=== PATIENT | female | born 1975 ===

== ENCOUNTER 2024-12-31 05:30 | Day surgery (SDC) | payer OTHER ==
[2024-12-28 13:48] VITALS: BP 137/84
[~2024-12-31] VITALS: Ht 162.6 cm; Wt 59.0 kg
[2024-12-31] MEDS ORDERED: METRONIDAZOLE/SODIUM CHLORIDE 500 MG/100 ML PIGGYBACK IV ONE (10:45)
[2024-12-31] MEDS ORDERED: CEFTRIAXONE SODIUM 2,000 MG VIAL IV ONE (10:45)
[2024-12-31] MEDS ORDERED: DIBUCAINE 30 GM TUBE RECTAL ONE (11:00)
[2024-12-31] MEDS ORDERED: HEMOSTATIC MATRIX 1 KIT KIT TOP ONE (11:00)
[2024-12-31] MEDS ORDERED: POVIDONE-IODINE 118 ML BOTT TOP ONE (11:00)
[2024-12-31] MEDS ORDERED: LIDOCAINE HCL 1%/EPINEPHRINE 20ML VIAL IJ ONE (11:00)
[2024-12-31] MEDS ORDERED: BUPIVACAINE HCL 30 ML VIAL IJ ONE (11:00)
[2024-12-31] MEDS ORDERED: PERCOCET 5-3251 EACH PO (11:18)
[2024-12-31] MEDS ORDERED: RECTICARE30 GM TOP (11:18)
[2024-12-31] MEDS ORDERED: MORPHINE SULFATE 4 MG/ML VIAL IV ONE (13:00)
== END 2024-12-31 16:50 | disposition home or self-care (01) ==
LOC: CIR.AMB 05:30
PROVIDERS: ATTEND Surgery
DX: K62.82 Dysplasia of anus (principal); K62.0 Anal polyp; K62.1 Rectal polyp; D12.9 Benign neoplasm of anus and anal canal